=== PATIENT | female | born 1950 | race American Indian/Alaskan Native ===

== ENCOUNTER 2022-01-15 09:39 | Emergency (ER) | payer MEDICARE ==
[2022-01-15] MEDS ORDERED: ACETAMINOPHEN 500 MG TAB PO ONE (10:48)
[2022-01-15] MEDS ORDERED: IPRATROPIUM/ALBUTEROL SULFATE 3 ML AMPUL.NEB IH ONE (10:48)
[2022-01-15 10:50] LABS: Basophils # (Auto) 0.1 K/mm3 (0.0-0.1); Basophils % (Auto) 1.7 % (0.0-1.8); Eosinophils % (Auto) 0.9 % (0.0-4.3); Hematocrit 39.5 % (30.3-42.9); Hemoglobin 12.9 gm/dl (10.1-14.3); Lymphocytes # (Auto) 2.4 K/mm3 (1.2-5.4); Mean Corpuscular HGB Conc 33 % (30-34); Mean Corpuscular Volume 87 fl (79-97); Monocytes # (Auto) 0.4 K/mm3 (0.0-0.8); Monocytes % (Auto) 8.1 % (0.0-7.3); Platelet Count 421 K/mm3 (140-440); Red Blood Count 4.52 M/mm3 (3.65-5.03); Red Cell Distribution Width 14.6 % (13.2-15.2)
[2022-01-15 11:14] LABS: Alanine Aminotransferase 15 units/L (7-56); Albumin 4.3 g/dL (3.9-5); Blood Urea Nitrogen 10 mg/dL (7-17); Calcium 9.4 mg/dL (8.4-10.2); Hemolysis Index 20
--- NOTE | 2022-01-15 11:35 | XRay Report ---
CHEST 1 VIEW INDICATION / CLINICAL INFORMATION: hemoptysis. COMPARISON: None available. FINDINGS: SUPPORT DEVICES: None. HEART / MEDIASTINUM: No significant abnormality. LUNGS / PLEURA: No significant pulmonary or pleural abnormality. No pneumothorax. ADDITIONAL FINDINGS: No significant additional findings. IMPRESSION: 1. No acute findings. Signer Name: Rangel Saini MD Signed: 01/15/2022 11:30 AM Workstation Name: [id number]
[2022-01-15 11:48] LABS: BUN/Creatinine Ratio 14; Bilirubin,Direct < 0.2 mg/dL (0-0.2)
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
[2022-01-15] MEDS ORDERED: predniSONE 20 MG TAB PO ONE (12:42)
[2022-01-15 12:49] VITALS: BP 118/61
--- NOTE | 2022-01-15 14:16 | Electrocardiograph Report ---
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
== END 2022-01-15 12:51 | disposition home or self-care (01) ==
LOC: ED 09:39
DX: J20.9 Acute bronchitis, unspecified (principal); R04.0 Epistaxis; Z98.890 Other specified postprocedural states
CPT/HCPCS: 36415; 71045; 80048; 80076; 83690; 84484; 85025; 93005; 93010; 94640; 94644; 99284